=== PATIENT | male | born 1965 ===

== ENCOUNTER → 2023-05-13 13:02 | Outpatient (BNVA) | payer OTHER, SELFPAY | PROVIDERS: PCP Family Medicine; Visit Provider Podiatrist Foot & Ankle Surgery | DX: M79.672 Pain in left foot (principal); M20.5X2 Other deformities of toe(s) (acquired), left foot | CPT/HCPCS: 73630; 99203 ==

== ENCOUNTER → 2023-05-31 13:31 | Outpatient (BNVA) | payer OTHER, SELFPAY | PROVIDERS: PCP Family Medicine; Referring Provider Family Medicine; Visit Provider Specialist | DX: R20.0 Anesthesia of skin (principal); R20.2 Paresthesia of skin; M50.00 Cervical disc disorder with myelopathy, unspecified cervical region; M54.50 Low back pain, unspecified | CPT/HCPCS: 99204 ==

== ENCOUNTER 2023-07-02 13:28 | Outpatient (CLI) | payer OTHER, SELFPAY ==
--- NOTE | 2023-07-02 13:45 | MR_ITS ---
WS: [id number] MRI CERVICAL SPINE NONCONTRAST TECHNIQUE: Sagittal T1, T2 and STIR imaging. Axial T2, gradient, and fiesta imaging. CLINICAL INFORMATION: R20.0 - Anesthesia of skin COMPARISON: None. FINDINGS: Straightening with reversal normal cervical lordosis. Small disc protrusions C3-C4 and C4-C5 worse at C4-C5. Incidental hemangioma C7. Cord signal is normal. C2-C3: Normal. C3-C4: Mild disc osteophyte complex with endplate ridging. Mild facet arthropathy. Mild LEFT bony for aminal narrowing. RIGHT foramen is patent. C4-C5: Central disc osteophyte protrusion with slight indentation on the cervical cord. Spinal canal is patent. Mild facet arthropathy. Moderate LEFT bony foraminal narrowing. RIGHT foramen is patent. C5-C6: Disc osteophyte complex eccentric to the LEFT with moderate LEFT bony foraminal narrowing. Mil d facet arthropathy. RIGHT foramen is patent. C6-C7: Disc osteophyte complex with endplate ridging. Spinal canal is patent. Moderate to severe LEFT and moderate RIGHT bony foraminal narrowing. Mild facet arthropathy. C7-T1: Spinal canal and foramen are patent. Visualized brain stem structures: Normal. Prevertebral soft tissues: Normal. IMPRESSION: 1. Slight straightening with reversal normal cervical lordosis. Cord signal is normal. 2. Moderate LEFT C4-C5 and LEFT C5-C6 bony foraminal narrowing. 3. Moderate to severe LEFT C6-7 bony foraminal narrowing. 4. Mild LEFT C3-C4 bony foraminal narrowing. 5. Shallow central disc osteophyte protrusions C3-C4 and C4-C5 worse at C4-C5 with slight indentatio n and flattening of the cervical cord. Spinal canal remains patent. 6. Cord signal appears normal.
== END 2023-07-02 13:29 | disposition home or self-care (01) ==
LOC: RAD 13:29
PROVIDERS: PCP Family Medicine; Visit Provider Specialist
DX: R20.0 Anesthesia of skin (principal); R20.2 Paresthesia of skin; M50.00 Cervical disc disorder with myelopathy, unspecified cervical region; M48.02 Spinal stenosis, cervical region; M25.78 Osteophyte, vertebrae
CPT/HCPCS: 72141

== ENCOUNTER → 2023-07-14 14:13 | Outpatient (BNVA) | payer OTHER, SELFPAY | PROVIDERS: PCP Family Medicine; Visit Provider Specialist | DX: M50.00 Cervical disc disorder with myelopathy, unspecified cervical region (principal) | CPT/HCPCS: 99214 ==